=== PATIENT | female | born 1945 | race Caucasian/White ===

== ENCOUNTER 2022-11-11 17:33 | Inpatient (IN) | payer BC, MEDICAID ==
[~2022-11-11] VITALS: Ht 149.9 cm; Wt 73.5 kg
[2022-11-11 17:33] VITALS: BP_SYST 161
--- NOTE | 2022-11-11 17:45 | NUR ---
PT BIBA AWAKE AND ALERT AOX4. NO SOB OR DISTRESS. PT HAD A SYNCOPE EPISODE WHILE IN THE [place]ARK AT [place] [employer] [facility]. PT STATED SHE FELL BACK AND HIT HER HEAD ON THE DIRT. ON SCENE PARAMEDICS STATED THERE WAS NO KO. NO ACTIVE BLEEDING OR SWELLING PRESENT. PT STATES PAIN 8/10. PT IS IN A NECK STABLIZIER.
--- NOTE | 2022-11-11 17:50 | NUR ---
MD DR ESCOBAR AT BEDSIDE
[2022-11-11] MEDS ORDERED: ACETAMINOPHEN 650 MG/20.3 ML UDC PO ONE (18:30)
[2022-11-11] MEDS ORDERED: ONDANSETRON HCL 4 MG/2 ML VIAL IVP ONE (18:30)
[2022-11-11 18:44] LABS: BASOPHILS # (AUTO) 0.1 K/uL (0.0-0.2); BASOPHILS % (AUTO) 0.8 % (0.0-2.0); EOSINOPHILS # (AUTO) 0.2 K/uL (0.0-0.4); EOSINOPHILS % (AUTO) 2.3 % (0.0-4.0); HEMOGLOBIN 13.5 g/dL (12.0-16.0); LYMPHOCYTES # (AUTO) 1.3 K/uL (1.0-5.5); LYMPHOCYTES % (AUTO) 15.5 % (20.5-51.5); MEAN CORPUSCULAR HEMOGLOBIN 29 pg (27-31); MEAN CORPUSCULAR HGB CONC 34 % (32-36); MEAN CORPUSCULAR VOLUME 87 fL (79.0-98.0); MONOCYTES # (AUTO) 0.4 K/uL (0.0-1.0); MONOCYTES % (AUTO) 5.1 % (1.7-9.3); NEUTROPHILS # (AUTO) 6.2 K/uL (1.8-7.7); NEUTROPHILS % (AUTO) 76.3 % (40.0-70.0); PLATELET COUNT (AUTO) 312 K/uL (130-430); RED BLOOD CELL COUNT(AUTO) 4.61 MIL/uL (4.2-6.2); RED CELL DISTRIBUTION WIDTH 13.5 % (9.0-15.0); WHITE BLOOD COUNT (AUTO) 8.1 K/uL (4.8-10.8)
--- NOTE | 2022-11-11 19:15 | NUR ---
REPORT GIVEN TO [facility]. PT VSS
[2022-11-11 19:16] LABS: ALANINE AMINOTRANSFERASE 23 U/L (12-78); ALBUMIN 3.9 g/dL (3.4-4.8); ANION GAP 7 (5-15); ASPARTATE AMINOTRANSFERASE 27 U/L (10-37); CALCIUM 9.2 mg/dL (8.4-11.0); CHLORIDE 101 mmol/L (98-107); CREATININE 1.08 mg/dL (0.55-1.30); GLUCOSE 139 mg/dL (70-99); TOTAL BILIRUBIN 1.4 mg/dL (0.0-1.0); UREA NITROGEN, BLOOD 13 mg/dL (8-21)
--- NOTE | 2022-11-11 20:28 | NUR ---
Admit bed requested Patient will be admitted to care of Dr. Isabel Admitted to MS unit. Diagnosis Syncope Inpatient (Yes or No) yes Observation (Yes or No) no Orientation concerns or request close to nursing station (Yes or No) no Covid Status negative On vent or bipap no Isolation requirements no Needs a sitter no From Home (Yes or if No enter name of facility) yes Requires Dialysis (Yes or No) no Med Rec Completed (Yes of No) yes
[2022-11-11] MEDS ORDERED: NACL 0.9% 1,000 ML IV SCH (20:30)
[2022-11-11] MEDS ORDERED: ACETAMINOPHEN 500 MG TABLET PO PRN (21:00)
[2022-11-11] MEDS ORDERED: guaiFENesin/DEXTROMETHORPHAN 10 ML UDC PO PRN (21:00)
[2022-11-11] MEDS ORDERED: ZOLPIDEM TARTRATE 5 MG TABLET PO PRN (21:00)
[2022-11-11] MEDS ORDERED: MECLIZINE HCL 25 MG TABLET (ANITVERT) PO PRN (21:00)
[2022-11-11] MEDS ORDERED: ONDANSETRON HCL 4 MG/2 ML VIAL IVP PRN (21:00)
[2022-11-11] MEDS ORDERED: MORPHINE 2 MG/ML INJ. SYRINGE IVP PRN (21:00)
[2022-11-11] MEDS ORDERED: DOCUSATE SODIUM 100 MG/10 ML UDC PO PRN (21:00)
[2022-11-11] MEDS: HYDROcodone/ACETAMIN 7.5-325 MG TAB PO PRN (22:06)
--- NOTE | 2022-11-11 22:06 | NUR ---
Medicated per MD orders. IVF infusing with no s/s of infiltration at this time. Will cont to monitor
[2022-11-11 22:13] LABS: FREE T4 (FREE THYROXINE) 1.2 ng/dL (0.6-1.6); PHOSPHORUS 3.2 mg/dL (2.7-4.5); THYROID STIMULATING HORMONE 1.36 uIu/mL (0.34-4.82)
[2022-11-11] MEDS ORDERED: CEL20 PO (22:29)
[2022-11-11] MEDS ORDERED: NOR10 PO (22:29)
[2022-11-11] MEDS ORDERED: FLUT1DIS3 INH (22:29)
[2022-11-11] MEDS ORDERED: ALBMDI INH (22:30)
--- NOTE | 2022-11-11 22:30 | NUR ---
Medication reconciliation completed with information provided by patient. Any prior medication reconciliation on file was reviewed and corrected.
--- NOTE | 2022-11-11 23:30 | NUR ---
ADMISSION NOTE Received patient from ER via lorenzo, received report from ER/ RN. Patient admitted with diagnosis of SYNCOPE . Patient oriented to hospital routine, call light, toileting and safety-patient verbalized understanding, bed side commode provided, orthostatic blood pressure recorded no dizziness.
--- NOTE | 2022-11-11 23:39 | NUR ---
Patient will be admitted to [facility]. Admitted to MED SURGE unit. Will go to room . Belongings list completed. Complete and up to date summary report printed. SBAR report to be given at bedside with opportunity for questions.
[2022-11-11 23:53] VITALS: BP_SYST 140
[2022-11-12 00:03] VITALS: BP_SYST 132; BP_SYST 145
--- NOTE | 2022-11-12 04:27 | NUR ---
CONSULTATION PAGED/CALLED Reason for Consultation: SYNCOPE Person Who was Notified: AGATA Consulting Physician: DR. CARTER Demand Generation Manager Specialty: CERTIFIED ETHICAL HACKER Ordering Physician: DR. BURNETT
--- NOTE | 2022-11-12 06:02 | NUR ---
CONSULTATION PAGED/CALLED Reason for Consultation: SYNCOPE Person Who was Notified: VIA TEXT Consulting Physician: Brick Layer Specialty: Ordering Physician: HORTENCIA
--- NOTE | 2022-11-12 06:08 | NUR ---
Patient able to get out of bed to bedside commode with out dizziness stand bye assist for safety.
[2022-11-12 06:49] LABS: BASOPHILS # (AUTO) 0.1 K/uL (0.0-0.2); BASOPHILS % (AUTO) 1.2 % (0.0-2.0); EOSINOPHILS # (AUTO) 0.3 K/uL (0.0-0.4); EOSINOPHILS % (AUTO) 4.8 % (0.0-4.0); HEMATOCRIT 37.5 % (36-48); HEMOGLOBIN 12.5 g/dL (12.0-16.0); LYMPHOCYTES # (AUTO) 1.5 K/uL (1.0-5.5); LYMPHOCYTES % (AUTO) 22.8 % (20.5-51.5); MEAN CORPUSCULAR HEMOGLOBIN 30 pg (27-31); MEAN CORPUSCULAR HGB CONC 33 % (32-36); MEAN CORPUSCULAR VOLUME 89 fL (79.0-98.0); MONOCYTES # (AUTO) 0.5 K/uL (0.0-1.0); MONOCYTES % (AUTO) 7.6 % (1.7-9.3); NEUTROPHILS # (AUTO) 4.1 K/uL (1.8-7.7); NEUTROPHILS % (AUTO) 63.6 % (40.0-70.0); PLATELET COUNT (AUTO) 271 K/uL (130-430); RED BLOOD CELL COUNT(AUTO) 4.23 MIL/uL (4.2-6.2); RED CELL DISTRIBUTION WIDTH 13.6 % (9.0-15.0); WHITE BLOOD COUNT (AUTO) 6.4 K/uL (4.8-10.8)
[2022-11-12 07:09] LABS: ANION GAP 7 (5-15); CALCIUM 8.5 mg/dL (8.4-11.0); CHLORIDE 105 mmol/L (98-107); CREATININE 0.93 mg/dL (0.55-1.30); GLUCOSE 111 mg/dL (70-99); UREA NITROGEN, BLOOD 10 mg/dL (8-21)
[2022-11-12 08:05] VITALS: BP_SYST 141
[2022-11-12] MEDS ORDERED: POTASSIUM CHLORIDE 20 MEQ TAB.PRT.SR PO PRN (09:00)
[2022-11-12] MEDS: PANTOPRAZOLE SODIUM 40 MG TAB PO SCH (09:33)
--- NOTE | 2022-11-12 10:30 | NUR ---
0800- received pt in bed. a/ox4. denies any pain or sob. ambulated to bathroom with steady gait. safety and fall precautions in place. call light within reach. 0930- due med given as ordered. not in acute distress. family at bed side 1000- seen by dr lozada.
[2022-11-12 11:44] VITALS: BP_SYST 136
--- NOTE | 2022-11-12 12:30 | NUR ---
REPORT GIVEN TO NURSE CORTES . CARE ENDORSED
--- NOTE | 2022-11-12 14:30 | NUR ---
PT HAVING EEG DONE AT BEDSIDE
[2022-11-12 16:00] VITALS: BP_SYST 124
--- NOTE | 2022-11-12 16:15 | NUR ---
PT REQUESTING ALBUTEROL. NOTIFIED DR BURNETT ABOUT MEDICATION THAT IS LOGGED INTO THE MED REC. DR. BURNETT SAID HE WOULD LOOK AT IT
[2022-11-12] MEDS ORDERED: ALBUTEROL MDI INHALATION 8 GM INH INH PRN (17:00)
[2022-11-12] MEDS ORDERED: ALBUTEROL SULFATE 0.083% 2.5 MG/3 ML VIAL.NEB INH PRN (17:15)
[2022-11-12 20:00] VITALS: BP_SYST 126
[2022-11-12] MEDS: HYDROcodone/ACETAMIN 7.5-325 MG TAB PO PRN (22:32)
[2022-11-13 00:05] VITALS: BP_SYST 123
[2022-11-13 00:51] LABS: BILIRUBIN,URINE NEGATIVE (NEGATIVE); BLOOD, URINE NEGATIVE (NEGATIVE); CLARITY/URINE CLEAR (CLEAR); COLOR,URINE YELLOW (YELLOW); GLUCOSE,URINE NEGATIVE (NEGATIVE); KETONES,URINE NEGATIVE (NEGATIVE); LEUKOCYTE ESTERASE ,URINE NEGATIVE (NEGATIVE); NITRITE, URINE NEGATIVE (NEGATIVE); PH,URINE 6.5 (5.0-8.0); PROTEIN URINE NEGATIVE (NEGATIVE); UROBILINOGEN,URINE 0.2 (0.2-1.0)
[2022-11-13] MEDS: BUDESONIDE 0.5 MG/2 ML AMPUL.NEB INH SCH ×2 (02:24→07:32)
[2022-11-13] MEDS: ALBUTEROL SULFATE 0.083% 2.5 MG/3 ML VIAL.NEB INH SCH ×3 (02:24→07:31)
--- NOTE | 2022-11-13 07:20 | NUR ---
CLOSING Patient resting in bed, no s/s of any distress, bed at at lowest position for safety with bed alarm, call light within reach. encourage to use call light for assistance. will endorse to AM nurse.
[2022-11-13 07:41] LABS: BASOPHILS # (AUTO) 0.1 K/uL (0.0-0.2); BASOPHILS % (AUTO) 1.3 % (0.0-2.0); EOSINOPHILS # (AUTO) 0.4 K/uL (0.0-0.4); EOSINOPHILS % (AUTO) 5.8 % (0.0-4.0); HEMATOCRIT 39.3 % (36-48); LYMPHOCYTES % (AUTO) 27.1 % (20.5-51.5); MEAN CORPUSCULAR HEMOGLOBIN 29 pg (27-31); MEAN CORPUSCULAR HGB CONC 33 % (32-36); MEAN CORPUSCULAR VOLUME 89 fL (79.0-98.0); MONOCYTES # (AUTO) 0.4 K/uL (0.0-1.0); MONOCYTES % (AUTO) 5.7 % (1.7-9.3); NEUTROPHILS # (AUTO) 4.4 K/uL (1.8-7.7); NEUTROPHILS % (AUTO) 60.1 % (40.0-70.0); PLATELET COUNT (AUTO) 307 K/uL (130-430); RED BLOOD CELL COUNT(AUTO) 4.43 MIL/uL (4.2-6.2); RED CELL DISTRIBUTION WIDTH 13.6 % (9.0-15.0); WHITE BLOOD COUNT (AUTO) 7.3 K/uL (4.8-10.8)
[2022-11-13 08:00] VITALS: BP_SYST 134
[2022-11-13 08:39] LABS: ANION GAP 5 (5-15); CALCIUM 8.6 mg/dL (8.4-11.0); CHLORIDE 104 mmol/L (98-107); GLUCOSE 99 mg/dL (70-99); UREA NITROGEN, BLOOD 13 mg/dL (8-21)
[2022-11-13] MEDS: PANTOPRAZOLE SODIUM 40 MG TAB PO SCH (08:41)
[2022-11-13] MEDS ORDERED: CITALOPRAM HYDROBROMIDE 20 MG TABLET PO SCH (09:00)
[2022-11-13] MEDS ORDERED: amLODIPine BESYLATE 10 MG TABLET PO SCH (09:00)
[2022-11-13] MEDS ORDERED: FLUTICASONE 250 mCg/SALMETEROL 50 mCg DISKUS W.DEV INH SCH (09:00)
[2022-11-13 10:17] VITALS: BP_SYST 134
[2022-11-13 11:05] VITALS: BP_SYST 123
== END 2022-11-13 11:00 | disposition home or self-care (01) | DRG 73 ==
LOC: EDBD 17:33 → SED 17:33 → SMU 20:24 → STU 11-12 09:53
PROVIDERS: ADMIT Family Medicine; ATTEND Family Medicine
PROC: 4A00X4Z Measurement of Central Nervous Electrical Activity, External Approach (ICD-10-PCS; principal; 2022-11-12)
DX: G90.8 Other disorders of autonomic nervous system (principal); G93.41 Metabolic encephalopathy; E87.6 Hypokalemia; I10 Essential (primary) hypertension; Z20.822 Contact with and (suspected) exposure to COVID-19; S09.90XA Unspecified injury of head, initial encounter; W01.0XXA Fall on same level from slipping, tripping and stumbling without subsequent striking against object, initial encounter; Y93.89 Activity, other specified; Z90.710 Acquired absence of both cervix and uterus; Y92.89 Other specified places as the place of occurrence of the external cause; Y99.8 Other external cause status
CPT/HCPCS: 36415; 70450-TC; 71045; 72125-TC; 76376; 80048; 80053; 80061; 81003; 82140; 82150; 83037; 83605; 83690; 83735; 83880; 84100; 84439; 84443; 84484; 85025; 85610-TC; 85730-TC; 93005; 93306; 93880; 94640; 94760; 96361; 96374; 99285; G0378; J2405; J7613; J7626